=== PATIENT | female | born 1990 | race Caucasian/White ===

== ENCOUNTER 2023-04-25 21:21 | Emergency (ER) | payer OTHER, SELFPAY ==
[2023-04-25 21:25] VITALS: BP 130/78
--- NOTE | 2023-04-26 00:54 | ED.GENMED ---
History of Present Illness
<BAKARI Emmanuel - Last Filed: 04/26/23 05:37>
General
Chief Complaint: Musculo-Skeletal Complaint
Source: patient
Exam Limitations: none
Time Seen by Provider: 04/26/23 00:42
Nursing documentation reviewed up to this point in time: agreed with
Travel History
Have you had any contact with someone who has COVID-19?: No
Do you have any symptoms of coronavirus? Fever > 100 degrees, chills, cough, shortness of breath, sore throat, loss of taste or smell, muscle aches, or headache?: No
History of Present Illness
History of Present Illness:
patient is a 32 y/o female presenting with lower back pain x 1 day. patient states that she was bending over doing lawn work when she felt a pain and 'something give way.' Patient admits that walking makes the pain worse. patient admits to radiation
down the L leg that is a sharp pain. patient also states that there is a pins and needles like pain that is in her left foot. patient admits that heat and positioning in flexion helps aleviate the pain. Patient deneis any CP, SOB, bladder or bowel
retention, EPPS, fever, chills, or abdominal pain. Patient admits to a history of herniated discs.
Review of Systems
<BAKARI Emmanuel - Last Filed: 04/26/23 05:37>
Review of Systems
All Other Systems: Not applicable
Constitutional: Reports no symptoms
EENT: Reports no symptoms
Respiratory: Reports no symptoms
Cardiac: Reports no symptoms
ABD/GI: Reports no symptoms
: Reports no symptoms
Musculoskeletal: Reports back pain (lumbar)
Skin: Reports no symptoms
Neurological: Reports weakness and numbness (tingling and pins and needles like pain on the L leg and foot )
Endocrine: Reports no symptoms
Hematologic/Lymphatic: Reports no symptoms
Psychiatric: Reports no symptoms
Phy Exam
<BAKARI Emmanuel - Last Filed: 04/26/23 05:37>
Physical Exam
Physical Exam:
tenderness to lower back
Musculoskeletal Exam
Musculoskeletal Exam: full ROM, back pain, back tenderness and other (tenderness to L foot )
Course
<BAKARI Emmanuel - Last Filed: 04/26/23 05:37>
Orders/Labs/Results
Orders:
Orders
04/26/23 00:53
Lumbar Spine Complete, 4 View [CR Lumbar Spine Comp Min 4 Vw*] Urgent
Comment:
Reason For Exam: lumbar back pain
04/26/23 01:39
Ibuprofen [Motrin] 600 mg PO NOW STA
Tizanidine [Zanaflex] 4 mg PO NOW STA
Vital Signs
Initial and Last Documented VS:
Initial Vital Signs
Temp Pulse Resp BP Pulse Ox
97.4 F 104 18 130/78 98
04/25/23 21:25 04/25/23 21:25 04/25/23 21:25 04/25/23 21:25 04/25/23 21:25
Last Documented Vital Signs
Temp Pulse Resp BP Pulse Ox
97.4 F 84 16 119/74 98
04/25/23 21:25 04/26/23 01:45 04/26/23 01:45 04/26/23 01:45 04/26/23 01:45
<Charles Arroyo DO - Last Filed: 04/26/23 02:41>
Orders/Labs/Results
Orders:
Orders
04/26/23 00:53
Lumbar Spine Complete, 4 View [CR Lumbar Spine Comp Min 4 Vw*] Urgent
Comment:
Reason For Exam: lumbar back pain
04/26/23 01:39
Ibuprofen [Motrin] 600 mg PO NOW STA
Tizanidine [Zanaflex] 4 mg PO NOW STA
Vital Signs
Initial and Last Documented VS:
Initial Vital Signs
Temp Pulse Resp BP Pulse Ox
97.4 F 104 18 130/78 98
04/25/23 21:25 04/25/23 21:25 04/25/23 21:25 04/25/23 21:25 04/25/23 21:25
Last Documented Vital Signs
Temp Pulse Resp BP Pulse Ox
97.4 F 84 16 119/74 98
04/25/23 21:25 04/26/23 01:45 04/26/23 01:45 04/26/23 01:45 04/26/23 01:45
<BAKARI Emmanuel - Last Filed: 04/26/23 05:37>
MDM/Problems Addressed
Differential Diagnosis Includes:
spinal stenosis
herniated disc
lumbar strain
MDM/Problems Addressed:
back pain x 1 day
<BAKARI Emmanuel - Last Filed: 04/26/23 05:37>
*Critical Care Note
Total Time (30-74mins, 75-104mins- exclusive of procedures): Not Applicable
ED Attending Note
<BAKARI Emmanuel - Last Filed: 04/26/23 05:37>
-
Portions of this chart may have been created with voice recognition software.� Occasional wrong word or��sound alike� substitutions may have occurred due to the inherent limitations of voice recognition software.
<Charles Arroyo DO - Last Filed: 04/26/23 02:41>
ED Attending Note
Patient seen and examined by attending physician: Yes
I performed the substantive portion of visit, reviewed & personally made and approve the management plan that is documented in note by myself or JOE.: Yes
ED Attending Note:
Pleasant 32-year-old female presents with low back pain that is been present for the last day. Patient was gardening yesterday when she bent over and felt a weird sensation in her back. She states that she developed low back pain. Denies bowel or
bladder retention or incontinence. States that she does have radiation down her left leg. Patient does report that heat and position helps with her pain. Patient does have a history of herniated disks. Patient was seen in conjunction with the PA
student. I have reviewed and agree with the history and treatment plan presented. On my independent physical exam, patient is awake, alert, and oriented x3 minimal acute distress while resting on the bed. Negative hip rolling test. Positive
straight leg raising test at 20 degrees, grade peripheral pulses. No respiratory distress. Mentating appropriately.
X-rays negative for any acute processes
Will try Zanaflex and Motrin. Patient is currently menstruating.
Discharge Plan
Departure
Patient Disposition: Home (Routine Discharge)
Date of Disposition: 04/26/23
Time of Disposition: 02:38
Patient with high blood pressure during this ER visit?: No
Condition: Good
Discharge Problem:
Low back pain
Instructions: Low back pain in adults
Prescriptions:
New
tizanidine [Zanaflex] 4 mg capsule
4 mg PO BID PRN (Reason: muscle spasticity) Qty: 7 0RF
diclofenac sodium 75 mg tablet,delayed release (DR/EC)
75 mg PO BID Qty: 10 0RF
No Action
multivitamin Tablet
1 tab PO DAILY
Referrals:
[facility] [Provider Group]
Activity Restrictions/Additional Instructions:
It was a pleasure meeting you and taking part in your care. We hope for your continued healing and wellness.
Please read discharge instructions in their entirety. However, they are for general education and may not describe your exact diagnosis at discharge. Information on your ER visit and medical conditions were discussed with you along with appropriate
follow up information...
If indicated, please take your medications as instructed and indicated on discharge paperwork.
Please schedule a follow up appointment as directed. Call to schedule an appointment
Please return to the emergency department with ANY change in, persisting, or worsening of symptoms. If any of your symptoms do not improve, or persist, or become more severe within 6-12 hours, please return to the emergency department for further
care.
Please return to the emergency department if you develop a headache, neck pain/stiffness, fever greater than 100.4F, chest pain, shortness of breath, persistent nausea, vomiting, slurred speech, difficulty walking, numbness/tingling, weakness, signs
of infection or any other symptoms that are worrisome to you.
If you have any questions or concerns please do not hesitate to call the Hospital at or E-mail me directly at [email or web address]
Interventions
Interventions:
*Risk Screen - Suicide Last Done: 04/25/23 21:25
*General Assessment Last Done: 04/26/23 01:52
*Neglect/Abuse Screening Last Done: 04/25/23 21:25
ED- Fall Risk Assessment Last Done: 04/26/23 02:50
*ED COVID-19 Vaccine History Last Done: 04/26/23 01:52
*Nursing Disposition Last Done: 04/26/23 02:50
ED-Musculoskeletal Assessment Last Done: 04/26/23 01:56
Discharge Date and Time
Discharge Date/Time: 04/26/23 03:01
[2023-04-26 01:45] VITALS: BP 119/74
[2023-04-26] MEDS: ZANAFLEX 4 MG PO (01:50)
[2023-04-26] MEDS: MOTRIN 600 MG PO (01:50)
[2023-04-26 01:52] VITALS: BMI 23.5
== END 2023-04-26 03:01 | disposition home or self-care (01) ==
LOC: EMR 21:21
PROVIDERS: EMERGENCY PHYSICIAN Student in an Organized Health Care Education/Training Program; FAMILY PHYSICIAN Family Medicine
DX: M54.50 Low back pain, unspecified (principal)
CPT/HCPCS: 99283; 72110